=== PATIENT | female | born 1975 | race Caucasian/White ===

== ENCOUNTER 2018-06-28 10:16 | Emergency (ER) | payer BC ==
[2018-06-28] MEDS ORDERED: DERMABOND SKIN ADHESIVE TOP ONE (12:05)
--- NOTE | 2018-06-28 12:06 | EDPHYS ---
Physician Documentation [facility] Name: Dahlia Vaca Age: 43 yrs Sex: Female : 1975 Arrival Date: 06/28/2018 Time: 10:22 Bed 9 Private MD: ED Physician Krishna Capps HPI: 06/28 12:04 This 43 yrs old Female presents to ER via Ambulatory with complaints of pm1 Facial injury. 12:04 The patient or guardian reports a laceration, 1 cm(s). The complaints affect the upper pm1 aspect of left cheek. Context of injury: The problem was sustained at home, resulted from accidental injury while removing a shelf. Onset: The symptoms/episode began/occurred just prior to arrival. Associated signs and symptoms: Loss of consciousness: This patient did not experience any loss of consciousness. Pertinent negatives: double vision, vision changes. The patient has not experienced similar symptoms in the past. The patient has not recently seen a physician. Patient was removing a shelf from the wall and when she removed one end, the other end fell down and hit against her left cheek and left upper eyelid. No vision changes or eye pain. Presenting with laceration on left upper cheek and abrasion to left inner upper eyelid. 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 - Social history:: Smoking status: Patient/guardian denies using tobacco. - Ebola Screening: : Patient negative for fever greater than or equal to 101.5 degrees Fahrenheit, and additional compatible Ebola Virus Disease symptoms Patient denies exposure to infectious person Patient denies travel to an Ebola-affected area in the 21 days before illness onset No symptoms or risks identified at this time. ROS: 12:05 Constitutional: Negative for fever, chills, and weight loss, Eyes: Negative for injury, pm1 pain, redness, and discharge, ENT: Negative for injury, pain, and discharge, Neck: Negative for injury, pain, and swelling, Cardiovascular: Negative for chest pain, palpitations, and edema, Respiratory: Negative for shortness of breath, cough, wheezing, and pleuritic chest pain, Abdomen/GI: Negative for abdominal pain, nausea, vomiting, diarrhea, and constipation, Back: Negative for injury and pain, : Negative for injury, bleeding, discharge, and swelling, MS/Extremity: Negative for injury and deformity. 12:05 Neuro: Negative for headache, weakness, numbness, tingling, and seizure. 12:05 Skin: Positive for laceration(s), of the left cheek, abrasion to left upper eyelid. Exam: 12:05 Constitutional: This is a well developed, well nourished patient who is awake, alert, pm1 and in no acute distress. Head/Face: Normocephalic, atraumatic. 12:05 ENT: Nares patent. No nasal discharge, no septal abnormalities noted. Tympanic membranes are normal and external auditory canals are clear. Oropharynx with no redness, swelling, or masses, exudates, or evidence of obstruction, uvula midline. Mucous membranes moist. Neck: Trachea midline, no thyromegaly or masses palpated, and no cervical lymphadenopathy. Supple, full range of motion without nuchal rigidity, or vertebral point tenderness. No Meningismus. Chest/axilla: Normal chest wall appearance and motion. Nontender with no deformity. No lesions are appreciated. Cardiovascular: Regular rate and rhythm with a normal S1 and S2. No gallops, murmurs, or rubs. Normal PMI, no JVD. No pulse deficits. Respiratory: Lungs have equal breath sounds bilaterally, clear to auscultation and percussion. No rales, rhonchi or wheezes noted. No increased work of breathing, no retractions or nasal flaring. Abdomen/GI: Soft, non-tender, with normal bowel sounds. No distension or tympany. No guarding or rebound. No evidence of tenderness throughout. Back: No spinal tenderness. No costovertebral tenderness. Full range of motion. 12:05 MS/ Extremity: Pulses equal, no cyanosis. Neurovascular intact. Full, normal range of motion. 12:05 Eyes: Extraocular movements: intact throughout, Conjunctiva: normal, no exudate, no injection, no subconjunctival hemorrhage Lids and lashes: abrasion(s), on the left lid. 12:05 Skin: Appearance: normal except for affected area, injury, laceration(s), the wound is approximately 1 cm(s), with a depth of 0.2 cm(s), of the left cheek. 12:05 Neuro: Orientation: is normal, Motor: is normal, moves all fours, Gait: is steady, at a normal pace, without difficulty. Vital Signs: 11:08 BP 124 / 75; Pulse 87; Resp 16; Temp 98.2; Pulse Ox 100% on R/A; Weight 68.04 kg; iw Height 5 ft. 6 in. (167.64 cm); Pain 5/10; 11:08 Body Mass Index 24.21 (68.04 kg, 167.64 cm) iw Deja Coma Score: 12:04 Eye Response: spontaneous(4). Verbal Response: oriented(5). Motor Response: obeys pm1 commands(6). Total: 15. Laceration: 12:04 Wound Repair of 1cm ( 0.4in ) subcutaneous laceration to left cheek. Linear shaped.. pm1 Distal neuro/vascular/tendon intact. Wound prep: Extensive cleansing with hibiclenz by me, Wound irrigation with saline by me, Wound explored extensively, Copious irrigation. Skin closed with thin layer Adhesive skin closure using Dermabond. Patient tolerated well. MDM: 11:15 Patient medically screened. pm1 11:48 Data reviewed: vital signs. Data interpreted: Pulse oximetry: on room air is 100 %. pm1 Interpretation: normal. 12:04 Counseling: I had a detailed discussion with the patient and/or guardian regarding: the pm1 historical points, exam findings, and any diagnostic results supporting the discharge/admit diagnosis. 06/28 11:37 Order name: Wound Care; Complete Time: 12:02 pm1 06/28 11:37 Order name: Dermabond; Complete Time: 12:02 pm1 Administered Medications: 12:11 Drug: Tetanus-Diphtheria Toxoid Adult 0.5 ml {Technical Writing Lead/Mgr: [employer]. Exp: dm5 05/25/2020. Lot #: [id number]. } Route: IM; Site: right deltoid; Disposition: 06/29 08:00 Co-signature as Attending Physician, Krishna Capps MD I agree with the assessment and shawn plan of care. Disposition: 06/28/18 12:05 Discharged to Home. Impression: Laceration without foreign body of unspecified part of head - left cheek. - Condition is Stable. - Discharge Instructions: Facial Laceration, Stitches, [place], or Adhesive Wound Closure. - Medication Reconciliation Form, Thank You Letter, Antibiotic Education, Prescription Opioid Use form. - Follow up: Emergency Department; When: As needed; Reason: Worsening of condition. Follow up: Private Physician; When: As needed; Reason: Recheck today's complaints, Continuance of care, Re-evaluation by your physician. - Problem is new. - Symptoms have improved. Signatures: Tatianna Anglin, RN RN dm5 Krishna Capps MD MD cha Williams, Irene, RN RN iw Salvador Xie, CONCRETE PRECAST MOULDER CONCRETE PRECAST MOULDER pm1 Corrections: (The following items were deleted from the chart) 06/28 12:36 12:05 06/28/2018 12:05 Discharged to Home. Impression: Laceration without foreign body dm5 of unspecified part of head - left cheek. Condition is Stable. Discharge Instructions: Facial Laceration, Stitches, [place], or Adhesive Wound Closure. Forms are Medication Reconciliation Form, Thank You Letter, Antibiotic Education, Prescription Opioid Use. Follow up: Emergency Department; When: As needed; Reason: Worsening of condition. Follow up: Private Physician; When: As needed; Reason: Recheck today's complaints, Continuance of care, Re-evaluation by your physician. Problem is new. Symptoms have improved. pm1
--- NOTE | 2018-06-28 12:06 | ER ---
Nurse's Notes [facility] Name: Dahlia Vaca Age: 43 yrs Sex: Female : 1975 Arrival Date: 06/28/2018 Time: 10:22 Bed 9 Private MD: Diagnosis: Laceration without foreign body of unspecified part of head-left cheek Presentation: 06/28 11:04 Presenting complaint: Patient states: was trying to take a shelf out of the wall, shelf iw hit her in left orbital area, small laceration noted to area, was worried about it opening back up, denies any visual disturbance, mild pain to left cheek. Transition of care: patient was not received from another setting of care. 11:04 Method Of Arrival: Ambulatory iw 11:06 Onset of symptoms was June 28, 2018. Risk Assessment: Do you want to hurt yourself or iw someone else? Patient reports no desire to harm self or others. Initial Sepsis Screen: Does the patient meet any 2 criteria? No. Patient's initial sepsis screen is negative. Does the patient have a suspected source of infection? No. Patient's initial sepsis screen is negative. Care prior to arrival: None. 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 - Social history:: Smoking status: Patient/guardian denies using tobacco. - Ebola Screening: : Patient negative for fever greater than or equal to 101.5 degrees Fahrenheit, and additional compatible Ebola Virus Disease symptoms Patient denies exposure to infectious person Patient denies travel to an Ebola-affected area in the 21 days before illness onset No symptoms or risks identified at this time. Vital Signs: 11:08 BP 124 / 75; Pulse 87; Resp 16; Temp 98.2; Pulse Ox 100% on R/A; Weight 68.04 kg; iw Height 5 ft. 6 in. (167.64 cm); Pain 5/10; 11:08 Body Mass Index 24.21 (68.04 kg, 167.64 cm) iw Deja Coma Score: 12:04 Eye Response: spontaneous(4). Verbal Response: oriented(5). Motor Response: obeys pm1 commands(6). Total: 15. ED Course: 10:22 Patient arrived in ED. mr 11:07 Triage completed. iw 11:09 Arm band placed on. iw 11:14 Salvador Xie NP is PHCP. pm1 11:14 Krishna Capps MD is Attending Physician. pm1 11:52 Tatianna Anglin, RN is Primary Nurse. dm5 Administered Medications: 12:11 Drug: Tetanus-Diphtheria Toxoid Adult 0.5 ml {Property Management Accountant: [employer]. Exp: dm5 05/25/2020. Lot #: [id number]. } Route: IM; Site: right deltoid; Outcome: 12:05 Discharge ordered by . pm1 12:36 Patient left the ED. dm5 Signatures: Tatianna Anglin, KRISTIN TurneraMayela Manju Hampton RN RN Salvador Xie NP AZURE PRINCIPAL SOLUTION SPECIALIST pm1
[2018-06-28] MEDS ORDERED: TETANUS & DIPHTHERIA TOX,ADULT 0.5 ML VIAL ONE (12:15)
== END 2018-06-28 12:36 | disposition home or self-care (01) ==
LOC: ER 10:16
PROC: 0JQ10ZZ Repair Face Subcutaneous Tissue and Fascia, Open Approach (ICD-10-PCS; principal; 2018-06-28)
DX: S01.412A Laceration without foreign body of left cheek and temporomandibular area, initial encounter (principal); W22.8XXA Striking against or struck by other objects, initial encounter; Y93.89 Activity, other specified; Y92.009 Unspecified place in unspecified non-institutional (private) residence as the place of occurrence of the external cause; Z23 Encounter for immunization
CPT/HCPCS: 90714; 99282

== ENCOUNTER 2020-10-04 22:04 | Emergency (ER) | payer BC, SELFPAY ==
[2020-10-04] MEDS ORDERED: LIDOCAINE 1% MPF 5 ML VIAL ONE (23:39)
[2020-10-04] MEDS ORDERED: TETANUS & DIPHTHERIA TOX,ADULT 0.5 ML VIAL ONE (23:40)
[2020-10-04] MEDS ORDERED: LIDOCAINE 1% 20 ML MDV ONE (23:51)
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
[2020-10-05 00:30] VITALS: BP 142/98; TEMP 98.1
[2020-10-05 00:32] VITALS: O2SAT 98
[2020-10-05] MEDS ORDERED: ACETAMINOPHEN 325 MG TABLET ONE (00:42)
--- NOTE | 2020-10-06 11:45 | RAD REPORT ---
EXAM DESCRIPTION: CT - Head Brain Wo Cont - 10/05/2020 6:14 am CLINICAL HISTORY: 45 years, Female, HEADACHE COMPARISON: None. FINDINGS: Multiple transaxial tomograms of the brain were obtained from the base of the skull to the vertex without contrast. 2-D multiplanar reformats and the coronal and sagittal plane were performed and reviewed. This exam was performed according to our departmental dose-optimization protocol, which includes auto mated exposure control, adjustment of the mA and/or kV according to patient size and/or use of iterat kolby reconstruction technique. Brain parenchyma as well as the moon and white matter differentiation demonstrate to be unremarkable. There is no midline shift and/or mass effect. There is no evidence for acute hemorrhage. Lateral v entricles and cisterns displace normal appearance. No intra or extra axial fluid collections were s een. The calvarium is intact with no evidence for fracture. The visualized portions of the paranasal sinuses and orbits demonstrate to be clear. IMPRESSION: No evidence for acute hemorrhage. Unremarkable CT scan of the head without contrast. Electronically signed by: Yovani Mattson MD 10/05/2020 12:04 AM CDT Due to temporary technical issues with the PACS/Fluency reporting system, reports are being signed by the in house radiologist without review as a courtesy to ensure prompt reporting. The interpreting r adiologist is fully responsible for the content of the report.
--- NOTE | 2020-10-06 12:11 | RAD REPORT ---
EXAM DESCRIPTION: CT - Facial Bones W/ Mpr - 10/05/2020 6:15 am CLINICAL HISTORY: 45 years, Female, FACIAL PAIN COMPARISON: None. TECHNIQUE: Multiple transaxial tomograms of the maxillofacial bones were performed utilizing 2 mm sl ice thickness at 2 mm interval reconstruction. In addition 2-D multiplanar reconstructions in the cor onal and sagittal plane were performed and reviewed. This exam was performed according to our departmental dose-optimization protocol, which includes auto mated exposure control, adjustment of the mA and/or kV according to patient size and/or use of iterat kolby reconstruction technique. FINDINGS: The paranasal sinuses demonstrate to be unremarkable. There is a minimal mucosal thickenin g inferior aspect right maxillary sinus. The nasal bones, orbital andrews, zygomatic bones, temporomandibular joint, mandible demonstrate to be unremarkable with no evidence for acute bony injuries. The orbits, intraconal and extraconal elements demonstrate to be within normal limits. Superior medial and inferior turbinates are grossly unremarkable. Nasopharynx and oropharynx demonstrate gila ar. No focal masses were demonstrated. The rest of the soft tissue and bony structures are grossl y unremarkable. Dental amalgam artifact is noted. IMPRESSION: No evidence for acute bony injuries. Minimal mucosal thickening inferior aspect right maxillary sinus. Electronically signed by: Yovani Mattson MD 10/05/2020 12:07 AM CDT Due to temporary technical issues with the PACS/Fluency reporting system, reports are being signed by the in house radiologist without review as a courtesy to ensure prompt reporting. The interpreting r adiologist is fully responsible for the content of the report.
== END 2020-10-05 00:26 | disposition home or self-care (01) ==
LOC: ER 22:04
PROC: 0CQ1XZZ Repair Lower Lip, External Approach (ICD-10-PCS; principal; 2020-10-05)
DX: S01.511A Laceration without foreign body of lip, initial encounter (principal); Y04.2XXA Assault by strike against or bumped into by another person, initial encounter; Y92.009 Unspecified place in unspecified non-institutional (private) residence as the place of occurrence of the external cause; Z23 Encounter for immunization; Z98.82 Breast implant status
CPT/HCPCS: 70450; 70486; 76377; 90471; 90714; 99284; G0390

== ENCOUNTER 2021-09-13 01:10 | Emergency (ER) | payer SELFPAY ==
[2021-09-13] MEDS ORDERED: CIPROFLOXACIN HCL 500 MG TAB ONE (01:50)
[2021-09-13] MEDS ORDERED: MUPIROCIN 2% OINT 22GM TUBE TOP ONE (01:59)
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
--- NOTE | 2021-09-13 03:24 | EDPHYS ---
Physician Documentation [facility] Name: Dahlia Vaca Age: 46 yrs Sex: Female : 1975 Arrival Date: 09/13/2021 Time: 01:13 Bed 19 Private MD: ED Physician Jadiel Harry HPI: 09/13 03:23 This 46 yrs old Female presents to ER via Ambulatory with complaints of Head Injury ms3 With LOC-Adult. 03:23 The patient or guardian reports a laceration, 3 cm(s), clean. The complaints affect the ms3 right parietal area. Context of injury: The problem was sustained outdoors, resulted from a fall, From bulk head, into water striking boat prop. Onset: The symptoms/episode began/occurred acutely, just prior to arrival. Associated signs and symptoms: Loss of consciousness: This patient did not experience any loss of consciousness. Pertinent positives: patient admits to or smells of alcohol consumption, Pertinent negatives: the patient has not experienced a loss of conciousness, double vision, headache, incontinence, nausea, vomiting. Severity of symptoms: At their worst the symptoms were moderate, in the emergency department the symptoms are unchanged. 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 - Social history:: Smoking status: unknown. - Immunization history: Last tetanus immunization: < 5 years ago. ROS: 03:23 Constitutional: Negative for fever, and chills. Eyes: Negative for injury, pain, ms3 redness, and discharge, Neck: Negative for injury, pain, and swelling, Cardiovascular: Negative for chest pain, and palpitations. Respiratory: Negative for shortness of breath, cough, wheezing, and pleuritic chest pain, Abdomen/GI: Negative for abdominal pain, nausea, vomiting, diarrhea, and constipation, MS/Extremity: Negative for injury and deformity. 03:23 Neuro: Negative for headache, weakness, numbness, tingling. Psych: Negative for depression, anxiety, suicide ideation, homicidal ideation, and hallucinations. 03:23 Skin: Positive for laceration(s). 03:23 All other systems are negative. Exam: 03:23 Constitutional: This is a well developed, well nourished patient who is awake, alert, ms3 and in no acute distress. Eyes: Pupils equal round and reactive to light, extra-ocular motions intact. Lids and lashes normal. Conjunctiva and sclera are non-icteric and not injected. Periorbital areas with no swelling, redness, or edema. Neck: Trachea midline, no cervical lymphadenopathy. Supple, full range of motion without nuchal rigidity, or vertebral point tenderness. No Meningismus. Chest/axilla: Normal chest wall appearance and motion. Nontender with no deformity. Cardiovascular: Regular rate and rhythm with a normal S1 and S2. No gallops, murmurs, or rubs. Normal PMI, no JVD. No pulse deficits. Respiratory: Lungs have equal breath sounds bilaterally, clear to auscultation and percussion. No rales, rhonchi or wheezes noted. No increased work of breathing, no retractions or nasal flaring. Abdomen/GI: Soft, non-tender, with normal bowel sounds. No distension or tympany. No guarding or rebound. No evidence of tenderness throughout. MS/ Extremity: Pulses equal, no cyanosis. Neurovascular intact. Full, normal range of motion. Psych: Awake, alert, with orientation to person, place and time. Behavior, mood, and affect are within normal limits. 03:23 Head/face: Noted is a laceration(s), that is superficial, 3 cm(s), of the right parietal area. 03:23 Skin: injury, abrasion(s), moderate sized abrasion noted, of the back. Vital Signs: 01:28 BP 163 / 97; Pulse 102; Resp 19; Temp 98.2; Pulse Ox 100% on R/A; Weight 72.57 kg; kd3 Height 5 ft. 6 in. (167.64 cm); Pain 7/10; 03:33 BP 115 / 83; Pulse 93; Resp 17; Pulse Ox 100% on R/A; kd3 01:28 Body Mass Index 25.82 (72.57 kg, 167.64 cm) kd3 Sawyer Coma Score: 01:32 Eye Response: spontaneous(4). Verbal Response: oriented(5). Motor Response: obeys ag7 commands(6). Total: 15. 03:23 Eye Response: spontaneous(4). Verbal Response: oriented(5). Motor Response: obeys ms3 commands(6). Total: 15. Trauma Score (Adult): 01:38 Eye Response: spontaneous(1); Verbal Response: oriented(1); Motor Response: obeys ag7 commands(2); Systolic BP: > 89 mm Hg(4); Respiratory Rate: 10 to 29 per min(4); Sawyer Score: 15; Trauma Score: 12 MDM: 01:33 Patient medically screened. ms3 03:23 Differential diagnosis: Contusion of head, Hematoma on head, Laceration of scalp. Data ms3 reviewed: vital signs, nurses notes, radiologic studies, CT scan, and as a result, I will discharge patient. Counseling: I had a detailed discussion with the patient and/or guardian regarding: the historical points, exam findings, and any diagnostic results supporting the discharge/admit diagnosis, radiology results, the need for outpatient follow up, to return to the emergency department if symptoms worsen or persist or if there are any questions or concerns that arise at home. ED course: Discussed CT, physical exam findings with patient. Patient to follow-up with primary care physician in 2 to 3 days. Patient understands and agrees with plan. All questions were answered. Return precautions discussed include worsening symptoms, or any other concerns. On reevaluation patient is alert and oriented x4, in no apparent distress, nontoxic-appearing, speaking full sentences, ambulatory in emergency department.. 09/13 01:33 Order name: CT Head Brain wo Cont ms3 09/13 01:33 Order name: Wound Care; Complete Time: 01:47 ms3 Administered Medications: 01:48 Drug: Cipro (ciprofloxacin) 500 mg Route: PO; ag7 02:18 Follow up: Response: No adverse reaction ag7 01:54 Drug: Mupirocin Ointment 2 % 1 application Route: Topical; Site: affected area; ag7 02:30 Follow up: Response: No adverse reaction ag7 Disposition Summary: 09/13/21 03:23 Discharge Ordered Location: Home ms3 Condition: Stable ms3 Diagnosis - Scalp Laceration/ Open wound of scalp ms3 - Fall ms3 Followup: ms3 - With: Justin Craig, DO - When: 2 - 3 days - Reason: Re-evaluation by your physician Discharge Instructions: - Discharge Summary Sheet ms3 - Nonsutured Laceration Care ms3 Forms: - Medication Reconciliation Form ms3 - Thank You Letter ms3 - Antibiotic Education ms3 - Prescription Opioid Use ms3 Prescriptions: - Cipro 500 mg Oral Tablet - take 1 tablet by ORAL route every 12 hours for 7 days; 14 tablet; Refills: 0, ms3 Product Selection Permitted Signatures: Dispatcher [employer] EDJadiel Carter DO DO ms3 Milka Dick RN RN kd3 Nu Harrell RN RN ag7
[2021-09-13 03:51] VITALS: TEMP 98.2; O2SAT 100
[2021-09-13 03:52] VITALS: BP 115/83
--- NOTE | 2021-09-14 14:29 | RAD REPORT ---
EXAM DESCRIPTION: CT of the head without contrast CLINICAL HISTORY: Fall, hit head on boat prop COMPARISON: 10/04/2020 TECHNIQUE: Axial CT of the head obtained from the skull apex to the skull base without contrast. Thi s exam was performed according to our departmental dose-optimization program, which includes automate d exposure control, adjustment of the mA and/or kV according to patient size and/or use of iterative reconstruction technique. FINDINGS: No acute intracranial hemorrhage identified. No mass, mass effect, shift of the midline, a bnormal extra-axial fluid collection or CT evidence of acute ischemic change identified. The ventricu lar system is unremarkable. No acute abnormalities of the supratentorial white matter, basal gangli a, cerebellum, or brainstem. Mild wall thickening of the urinary bladder. No skull fracture identified. Visualized orbits and gl obes are unremarkable. Laceration in the high right scalp soft tissues. No foreign bodies identified. IMPRESSION: 1. No acute intracranial abnormality identified. Electronically signed by: Pete Mohamud 09/13/2021 3:04 AM CDT Due to temporary technical issues with the PACS/Fluency reporting system, reports are being signed by the in house radiologist without review as a courtesy to ensure prompt reporting. The interpreting r adiologist is fully responsible for the content of the report.
== END 2021-09-13 03:34 | disposition home or self-care (01) ==
LOC: ER 01:10
DX: S01.01XA Laceration without foreign body of scalp, initial encounter (principal); W01.198A Fall on same level from slipping, tripping and stumbling with subsequent striking against other object, initial encounter; Y93.89 Activity, other specified; Y92.9 Unspecified place or not applicable
CPT/HCPCS: 70450; 99284